=== PATIENT | female | born 1980 | race African-American/Black ===

== ENCOUNTER 2025-06-16 21:49 | Emergency (ER) | payer OTHER, MEDICAID ==
[~2025-06-16] VITALS: Ht 167.6 cm; Wt 104.0 kg
[2025-06-16 22:47] VITALS: O2SAT 100
[2025-06-17] MEDS ORDERED: FLUT15.844 BOTHNSTRLS (01:08)
[2025-06-17] MEDS ORDERED: AMOX1TAB16 MT (01:08)
[2025-06-17 01:31] VITALS: BP 148/86; PULSE 76; RESP 20; TEMP 36.8; O2SAT 99
== END 2025-06-17 01:31 | disposition home or self-care (01) ==
LOC: ER 21:49
DX: J32.9 Chronic sinusitis, unspecified (principal); J04.0 Acute laryngitis
CPT/HCPCS: 99283